=== PATIENT | male | born 1980 | race Native Hawaiian/Other Pacific Islander ===

== ENCOUNTER 2019-01-25 15:43 | Outpatient (CLI) | payer OTHER | END 2019-01-25 20:32 | disposition home or self-care (01) | LOC: LABW 15:43 | DX: R79.89 Other specified abnormal findings of blood chemistry (principal) | CPT/HCPCS: 36415; 84402; 84403 ==

== ENCOUNTER 2020-08-28 08:30 | Outpatient (CLI) | payer OTHER ==
[2020-08-28 08:51] LABS: PLATELET COUNT 176 K/uL (142-355)
[2020-08-28 09:39] LABS: POTASSIUM 4.5 mmol/L (3.6-5.2)
== END 2020-08-28 19:10 | disposition home or self-care (01) ==
LOC: LABW 08:30
PROVIDERS: ATTEND Internal Medicine
DX: E29.1 Testicular hypofunction (principal); M10.9 Gout, unspecified
CPT/HCPCS: 36415; 80053; 80061; 81000; 84153; 84402; 84403; 84550; 85027